=== PATIENT | male | born 1935 | race Asian ===

== ENCOUNTER 2019-07-27 21:31 | Emergency (ER) | payer MEDICARE, BC ==
[2019-07-27 21:49] LABS: ABS Eosinophils 0.1 10^3/ul (0-0.6); ABS Lymphocytes 2.1 10^3/ul (1.0-4.8); ABS Monocytes 0.6 10^3/ul (0-0.8); ABS Neutrophils 2.5 10^3/ul (1.5-7.7); Eosinophil % 1.7 %; Hematocrit 49 % (42-52); Hemoglobin 15.9 g/dL (14.0-18.0); Lymphocyte % 40.1 %; Mean Corpuscular HGB Conc 33 g/dL (31-36); Mean Corpuscular Hemoglobin 29 pg (27-31); Mean Corpuscular Volume 90 fL (80-94); Mean Platelet Volume 7.7 fL (7.4-10.4); Nucleated Red Blood Cells % 0.2; Platelet Count 194 10^3/uL (150-450); Red Blood Count 5.42 10^6 /uL (4.18-5.48); Red Cell Distribution Width 15 % (10-15); White Blood Count 5.2 10^3/uL (3.5-10.8)
[2019-07-27 21:55] LABS: INR 1.1 (0.82-1.09)
--- NOTE | 2019-07-27 22:02 | ED ---
HPI Chest Pain - HPI Summary HPI Summary: Pt is an 83 y/o M presenting to the ED with a chief complaint of chest pain initially onset around 2000 tonight. It has resolved, but the episode lasted about two hours. It was accompanied by nausea, and he checked his BP which was high, around 190/110. He denies vomiting. He notes recent medication change from Atenolol 25mg to Bisoprolol. Hx of stent in 2012. No hx CHF or angina. - History of Current Complaint Chief Complaint: EDChestPainROMI Time Seen by Provider: 07/27/19 21:52 Hx Obtained From: Patient Onset/Duration: Started Hours Ago, Resolved Timing: Intermittent, Lasting Hours Initial Severity: Moderate Current Severity: Mild Pain Intensity: 6 Pain Scale Used: 0-10 Numeric Chest Pain Location: Mid Sternal Chest Pain Radiates: No Aggravating Factor(s): Nothing Alleviating Factor(s): Spontaneous Resolution Associated Signs and Symptoms: Positive: Chest Pain, Nausea, Other: - HTN. Negative: Shortness of Breath, Vomiting - Allergy/Home Medications Allergies/Adverse Reactions: Allergies Allergy/AdvReac Type Severity Reaction Status Date / Time No Known Allergies Allergy Verified 07/27/19 21:40 Home Medications: Home Medications Amlodipine Besylate [Amlodipine 2.5 mg tab] 2.5 mg PO DAILY 07/27/19 [History Confirmed 07/27/19] Bisoprolol Fumarate 5 mg PO DAILY 07/27/19 [History Confirmed 07/27/19] PMH/Surg Hx/FS Hx/Imm Hx Previously Healthy: Yes Endocrine/Hematology History: Reports: Hx Diabetes - pre-diabetic Cardiovascular History: Reports: Hx Hypertension, Other Cardiovascular Problems/ Disorders - stent placed 2012 Denies: Hx Angina, Hx Congestive Heart Failure Infectious Disease History: No Infectious Disease History: Denies: Traveled Outside the [place] in Last 30 Days - Family History Known Family History: Negative: Diabetes - Social History Alcohol Use: None Hx Substance Use: No Substance Use Type: Reports: None Hx Tobacco Use: No Smoking Status (MU): Never Smoked Tobacco Review of Systems Positive: Other - HTN Positive: Chest Pain Positive: Nausea. Negative: Vomiting All Other Systems Reviewed And Are Negative: Yes Physical Exam - Summary Physical Exam Summary: Appearance: Well-appearing, Well-nourished, lying in bed comfortably. Elevated BP is noted. Skin: Warm, dry, no obvious rash Eyes: sclera anicteric, no conjunctival pallor ENT: mucous membranes moist, pharynx appears normal Neck: Supple, nontender Respiratory: Clear to auscultation, no signs of respiratory distress Cardiovascular: Normal S1, S2. No murmurs. Normal distal pulses in tibial and radial bilaterally. Abdomen: Soft, nontender, normal active bowel sounds present Musculoskeletal: Normal, Strength/ROM Intact Neurological: A&Ox3, awake and alert, mentation is normal, speech is fluent and appropriate Psychiatric: affect is normal, does not appear anxious or depressed Triage Information Reviewed: Yes Vital Signs On Initial Exam: Initial Vitals Temp Pulse Resp BP Pulse Ox 98.9 F 70 20 181/86 99 07/27/19 21:32 07/27/19 21:32 07/27/19 21:32 07/27/19 21:32 07/27/19 21:32 Vital Signs Reviewed: Yes Procedures - Sedation Patient Received Moderate/Deep Sedation with Procedure: No Diagnostics - Vital Signs Vital Signs Temp Pulse Resp BP Pulse Ox 07/27/19 21:32 98.9 F 70 20 181/86 99 - Laboratory Lab Results: Lab Results 07/27/19 07/27/19 Range/Units 21:40 21:40 WBC 5.2 (3.5-10.8) 10^3/uL RBC 5.42 (4.18-5.48) 10^6 /uL Hgb 15.9 (14.0-18.0) g/dL Hct 49 (42-52) % MCV 90 (80-94) fL MCH 29 (27-31) pg MCHC 33 (31-36) g/dL RDW 15 (10-15) % Plt Count 194 (150-450) 10^3/uL MPV 7.7 (7.4-10.4) fL Neut % (Auto) 46.8 % Lymph % (Auto) 40.1 % [place] % (Auto) 11.1 % Eos % (Auto) 1.7 % Baso % (Auto) 0.3 % Absolute Neuts (auto) 2.5 (1.5-7.7) 10^3/ul Absolute Lymphs (auto) 2.1 (1.0-4.8) 10^3/ul Absolute Monos (auto) 0.6 (0-0.8) 10^3/ul Absolute Eos (auto) 0.1 (0-0.6) 10^3/ul Absolute Basos (auto) 0.0 (0-0.2) 10^3/ul Absolute Nucleated RBC 0.0 10^3/ul Nucleated RBC % 0.2 INR (Anticoag Therapy) 1.10 H (0.82-1.09) Result Diagrams: 07/27/19 21:40 07/27/19 21:40 Lab Statement: Any lab studies that have been ordered have been reviewed, and results considered in the medical decision making process. - EKG 2132 Cardiac Rate: NL - 67bpm EKG Rhythm: Sinus Rhythm ST Segment: Normal Ectopy: None Summary of EKG Findings: EKG at 2132 shows NSR at 67bpm, P waves, QRS complex, and T waves are within normal limits, T waves and intervals are normal, no ischemic changes. This is a normal EKG. ED physician has reviewed and interpreted this EKG. Chest Pain Course/Dx - Course Course Of Treatment: Pt is an 83 y/o M presenting to the ED with a chief complaint of chest pain initially onset around 2000 tonight. It has resolved, but the episode lasted about two hours. It was accompanied by nausea, and he checked his BP which was high, around 190/110. He denies vomiting. He notes recent medication change from Atenolol 25mg to Bisoprolol. Hx of stent in 2012. No hx CHF or angina. Elevated BP noted, physical exam is otherwise nml. Pt's first and second troponin are negative. EKG at 2132 shows NSR at 67bpm, P waves , QRS complex, and T waves are within normal limits, T waves and intervals are normal, no ischemic changes. This is a normal EKG. ED physician has reviewed and interpreted this EKG. HEART score of 3. Pt will be sent home with dx of chest pain. - Diagnoses Provider Diagnoses: Chest pain Discharge ED - Sign-Out/Discharge Documenting (check all that apply): Patient Departure - Discharge Plan Condition: Good Disposition: HOME Patient Education Materials: Chest Pain (ED), Chronic Hypertension (ED) Referrals: Deon Dixon MD [Primary Care Provider] - As Soon As Possible - Billing Disposition and Condition Condition: GOOD Disposition: Home - Attestation Statements Document Initiated by Scribe: Yes Documenting Scribe: Keesha Fernandez Provider For Whom Aime is Documenting (Include Credential): Devin Day MD. Scribe Attestation: Keesha Jones, pennyed for Devin Day MD. on 07/28/19 at 0635. Scribe Documentation Reviewed: Yes Provider Attestation: The documentation as recorded by the monyibe, Keesha Fernandez accurately reflects the service I personally performed and the decisions made by me, Devin Day MD. Status of Scribe Document: Viewed
[2019-07-27 22:06] LABS: Albumin 4.2 g/dL (3.2-5.2); Albumin/Globulin Ratio 1.1 (1-3); Calcium 9.5 mg/dL (8.6-10.3); EGFR African American 120.3 (>60); EGFR Non-African American 99.5 (>60); Globulin 3.8 g/dL (2-4); Potassium 3.8 mmol/L (3.5-5.0); Total Bilirubin 0.5 mg/dL (0.2-1.0)
[2019-07-27 22:22] LABS: Troponin I 0.01 ng/mL (<0.03)
[2019-07-28 01:30] VITALS: BP 162/77
== END 2019-07-28 01:29 | disposition home or self-care (01) ==
LOC: ED 21:31
DX: R07.9 Chest pain, unspecified (principal); I10 Essential (primary) hypertension; Z95.5 Presence of coronary angioplasty implant and graft; Z79.899 Other long term (current) drug therapy
CPT/HCPCS: 36415; 80053; 84484; 85025; 85610; 93005; 99283

== ENCOUNTER 2023-10-05 10:42 | Observation (INO) ==
[2023-10-05 11:11] LABS: ABS Lymphocytes 1.3 10^3/uL (1.0-4.8); ABS Neutrophils 6.7 10^3/uL (1.5-7.6); ABS Nucleated RBC 0.01 10^3/ul; Eosinophil % 0.1 %; Hematocrit 40.1 % (38-53); Hemoglobin 13.8 g/dL (13.2-16.3); Lymphocyte % 14.6 %; Mean Corpuscular Hemoglobin 30.7 pg (27-33); Mean Corpuscular Hgb Conc 34.4 g/dL (31-36); Mean Corpuscular Volume 89.2 fL (80-97); Nucleated Red Blood Cells % 0.1 %/100WBC (0.0-0.8); Platelet Count 154 10^3/uL (150-450); Red Blood Count 4.49 10^6/uL (4.06-5.63); White Blood Count 9.1 10^3/uL (3.6-10.2)
[2023-10-05 11:28] LABS: Albumin 3.8 g/dL (3.2-5.2); Albumin/Globulin Ratio 1.1 (1-3); Calcium 8.7 mg/dL (8.6-10.3); Creatinine, Serum 0.72 mg/dL (0.67-1.17); Globulin 3.4 g/dL (2-4); Potassium 3.7 mmol/L (3.5-5.0); Total Bilirubin 1.1 mg/dL (0.2-1.0); Total Protein 7.2 g/dL (6.4-8.9); eGFR CKD-EPI 88.4 (>60)
[2023-10-05 11:33] LABS: INR 1.25 (0.83-1.13)
[2023-10-05 12:41] LABS: High Sensitivity Troponin 1 Hr 4 pg/mL (<20)
[2023-10-05] MEDS ORDERED: Pantoprazole VIAL 40 MG VIAL IV ONE (13:40)
[2023-10-05] MEDS ORDERED: Al Hydrox/Mg Hydrox/Simet LIQ 30 ML UDC PO ONE (13:40)
[2023-10-05] MEDS ORDERED: Calcium Carb (TUMS) 500 mg CHEW TAB PO PRN (14:37)
[2023-10-05 19:17] LABS: Osmolality Serum 273 mOsm/kg (275-295)
[2023-10-06 06:35] LABS: Calcium 8.4 mg/dL (8.6-10.3); Creatinine, Serum 0.61 mg/dL (0.67-1.17); HDL Cholesterol 41.2 mg/dL; Potassium 3.8 mmol/L (3.5-5.0)
[2023-10-06 12:53] LABS: C Reactive Protein 112.2 mg/L (<8.01)
[2023-10-06] MEDS ORDERED: Piperacillin/Tazobac 3.375 BAG 3.375 GM/100 ML BAG IV ONE (13:00)
[2023-10-06] MEDS ORDERED: Zosyn per Pharmacy NOTE FOLLOW UP SCH (13:00)
[2023-10-06] MEDS ORDERED: Enoxaparin 40 MG/0.4 ML SYR SUBCUT SCH (18:00)
[2023-10-06] MEDS ORDERED: Al Hydrox/Mg Hydrox/Simet LIQ 30 ML UDC PO PRN (18:19)
[2023-10-06] MEDS: ZOSYN 3.375 GM Q8H per EXTENDED INFUSION IV SCH (20:15)
[2023-10-07] MEDS: ZOSYN 3.375 GM Q8H per EXTENDED INFUSION IV SCH ×2 (04:22→11:33)
[2023-10-07 06:36] LABS: ABS Eosinophils 0.1 10^3/uL (0.0-0.5); ABS Lymphocytes 1.1 10^3/uL (1.0-4.8); ABS Monocytes 1.1 10^3/uL (0.0-1.1); ABS Nucleated RBC 0.01 10^3/ul; Hematocrit 38.1 % (38-53); Hemoglobin 12.8 g/dL (13.2-16.3); Lymphocyte % 15.7 %; Mean Corpuscular Hemoglobin 29.9 pg (27-33); Mean Corpuscular Hgb Conc 33.5 g/dL (31-36); Mean Corpuscular Volume 89.2 fL (80-97); Mean Platelet Volume 8.3 fL (7.5-11.2); Nucleated Red Blood Cells % 0.1 %/100WBC (0.0-0.8); Platelet Count 139 10^3/uL (150-450); Red Blood Count 4.27 10^6/uL (4.06-5.63); Red Cell Distribution Width 13.7 % (12-17); White Blood Count 7.3 10^3/uL (3.6-10.2)
[2023-10-07 06:55] LABS: Calcium 8.2 mg/dL (8.6-10.3); Creatinine, Serum 0.7 mg/dL (0.67-1.17); Magnesium 1.9 mg/dL (1.9-2.7); Phosphorus 2.5 mg/dL (2.5-5.0); Potassium 3.7 mmol/L (3.5-5.0); eGFR CKD-EPI 89.2 (>60)
[2023-10-07 08:46] LABS: Urine Creatinine Concentration 100.16 mg/dL (20.00-370.00)
[2023-10-07] MEDS ORDERED: Potassium Chlor 10 meq TAB PO ONE (09:51)
[2023-10-07 13:46] VITALS: BP 113/66
== END 2023-10-07 16:29 | disposition home or self-care (01) ==
LOC: ED 10:42 → EDHOLD 10:42 → SUATTDRO 13:36 → MEDTELE 15:41
PROVIDERS: ADMIT Internal Medicine; ATTEND Internal Medicine